=== PATIENT | male | born 1965 | race Hispanic/Latino ===

== ENCOUNTER 2018-08-21 08:23 | Outpatient (CLI) | payer OTHER ==
[2018-08-21 09:09] LABS: Estimated GFR-MDRD - POC Greater than 90
--- NOTE | 2018-08-21 12:51 | MRI ---
MRI PELVIS WITH AND WITHOUT IV CONTRAST: INDICATIONS: History of prostate enlargement with lower urinary tract symptomatology and a history of a prostate b iopsy 1-1/2 hours ago without evidence of cancer. COMPARISON: No comparisons are available. TECHNIQUE: Multiplanar, multisequence, MR images were obtained of the pelvis, with and without IV contrast, util izing prostate cancer specific protocol. MultiHance 20 mL was utilized for the examination. The lesa ges were interpreted on a separate 3D [employer] work station for a multiparametric evaluation. FINDINGS: The prostate measures 5.3 x 3.8 x 3.3 cm, giving an estimated total prostatic volume of 34.60 mL. Th ere are areas of hazy, feathery-like T2 hypointensity seen within the peripheral zone of the prostat e gland, most accentuated within the left mid gland. There are numerous BPH nodules seen centrally, within the transitional zone, without a definite T2 signal abnormality lesion. There is mild wall th ickening involving the bladder. No area of restricted diffusion is grossly evident within the periph eral zone. There are a few scattered colonic diverticula. No pathologically enlarged lymph nodes ar e grossly evident. No region of abnormal dynamic contrast enhancement is grossly evident. No abnorm al marrow signal intensity is evident. IMPRESSION: PI-RADS category 2-Low (clinically significant) cancer is unlikely to be present. POS: CET
== END 2018-08-21 08:24 | disposition home or self-care (01) ==
LOC: TBSIIMAG 08:23
PROVIDERS: ATTEND Urology
DX: N40.1 Benign prostatic hyperplasia with lower urinary tract symptoms (principal); N42.89 Other specified disorders of prostate
CPT/HCPCS: 72197; 82565

== ENCOUNTER 2019-04-22 08:00 | Outpatient (CLI) | payer OTHER ==
--- NOTE | 2019-04-22 09:41 | CT ---
CT of the abdomen and pelvis with and without contrast: 04/22/2019 HISTORY: Hematuria, history of nephrolithiasis TECHNIQUE: Axial CT imaging at 3 mm intervals from lung bases through pubic symphysis with and withou t IV contrast using CT urogram protocol. Coronal and sagittal reformatted imaging during urographic phase provided. FINDINGS: The imaged lung bases are unremarkable. No free intraperitoneal air or fluid is seen. There is an oval cystic lesion in the right paracardiac region abutting the posterior lateral aspect of the right ventricle, consistent with a benign nonenhancing cyst. Pre and postcontrast imaging of the liver, spleen, gallbladder, pancreas, adrenal glands, and kidneys demonstrates no acute findings. There is no evidence for nephrolithiasis or obstructive uropathy on either side. There is a small oval hypodensity within the anterior aspect of the midpole left kidney, difficult to characterize given its small size. It measures approximately 4-5 mm in transverse dimension and approximately 8 mm in AP dimension. There is diverticulosis of the sigmoid colon with no evidence for diverticulitis. No evidence for bow el inflammatory change or bowel obstruction. The vascular structures appear patent. No lymphadenopathy is noted within the abdomen/pelvis. Review of the osseous structures demonstrates no worrisome lytic or blastic bone lesions. Bilateral L 5 pars defects are suspected with minimal anterolisthesis at L5-S1 measuring approximately 5 mm. The urographic phase imaging demonstrates no filling defect within the renal collecting system on eit her side. Urinary bladder is not optimally evaluated on this examination. Small Bochdalek hernia present on the left. IMPRESSION: No evidence for nephrolithiasis or obstructive uropathy. No suspicious solid renal mass. There is a tiny subcentimeter hypodensity within the left kidney which is too small to characterize.
[2019-04-22] MEDS ORDERED: Iopamidol-370 76% 500 ML 1 ML ONE (15:16)
== END 2019-04-22 08:01 | disposition home or self-care (01) ==
LOC: BICCT 08:00
PROVIDERS: ATTEND Urology
DX: R31.29 Other microscopic hematuria (principal); N28.89 Other specified disorders of kidney and ureter
CPT/HCPCS: 74178; Q9967

== ENCOUNTER 2020-06-10 08:02 | Outpatient (CLI) | payer OTHER | END 2020-06-10 08:03 | disposition home or self-care (01) | LOC: TBSIIMAG 08:02 | PROVIDERS: ATTEND Orthopaedic Surgery | DX: M75.42 Impingement syndrome of left shoulder (principal); M19.012 Primary osteoarthritis, left shoulder; M75.102 Unspecified rotator cuff tear or rupture of left shoulder, not specified as traumatic ==

== ENCOUNTER 2021-02-25 09:39 | Observation (INO) | payer BC, OTHER ==
[2021-02-25 10:52] LABS: #Basophils 0.1 thou/uL (0.0-0.2); #Eosinphils 0.1 thou/uL (0.0-0.7); #Lymphocytes 2.1 thou/uL (1.20-3.40); #Monocytes 0.3 thou/uL (0.11-0.59); #Neutrophils 3.1 thou/uL (1.40-6.50); %Basophils 1.1 % (0.0-1.0); %Eosinophils 1.4 % (0.0-10.0); %Lymphocytes 37.2 % (21.0-51.0); %Monocytes 5.9 % (0.0-10.0); %Neutrophils 54.4 % (42.0-75.0); Hemoglobin 13.8 g/dL (14.0-18.0); Mean Corpuscular HGB CONC 33.1 g/dL (32.0-36.0); Mean Corpuscular Hemoglobin 30.3 pg (27.0-31.0); Mean Corpuscular Volume 91.6 fL (78.0-98.0); Mean Platelet Volume 6.8 fL (7.4-10.4); Platelet Count 359 thou/uL (130-400); RBC Distribution Width 11.9 % (11.5-14.5); Red Blood Cell (RBC) Count 4.55 mill/uL (4.70-6.10); White Blood Cell (WBC) Count 5.7 thou/uL (4.8-10.8)
[2021-02-25 11:16] LABS: ALT (SGPT) 18 U/L (8-55); AST (SGOT) 14 U/L (5-34); Albumin 3.7 g/dL (3.5-5.0); Alkaline Phosphatase 78 U/L (40-110); Anion Gap 13 mmol/L (10-20); BUN (Urea Nitrogen) 16 mg/dL (8.4-25.7); Bilirubin, Total 0.5 mg/dL (0.2-1.2); Calc. Creatinine Clearance 0 mL/min (70-130); Calcium 9.1 mg/dL (7.8-10.44); Carbon Dioxide 24 mmol/L (22-29); Chloride 106 mmol/L (98-107); Glucose 90 mg/dL (70-105); Potassium 4.1 mmol/L (3.5-5.1); Protein, Total 6.7 g/dL (6.0-8.3); Sodium 139 mmol/L (136-145)
[2021-02-25 13:29] LABS: Troponin I 0.038 ng/mL (< 0.028)
[2021-02-25] MEDS ORDERED: Aspirin Chewable 81 MG TAB ONE ×2 (13:49→13:50)
[2021-02-25] MEDS ORDERED: Nitroglycerin 2% Ointment 1 INCH/1 GM Packet ONE (13:49)
[2021-02-25] MEDS ORDERED: Acetaminophen 325 MG TAB PO PRN (15:28)
[2021-02-25] MEDS ORDERED: Ondansetron ODT 4 MG TAB PO PRN (15:28)
[2021-02-25] MEDS ORDERED: Nitroglycerin 0.4 MG TAB (25 Tab Bottle) SL PRN (15:30)
[2021-02-25] MEDS ORDERED: Nitroglycerin 2% Ointment 1 INCH/1 GM Packet TOP SCH ×2 (16:00→22:00)
[2021-02-25] MEDS ORDERED: Morphine 4 MG/ML VIAL SLOW IVP PRN (16:09)
[2021-02-25 16:33] LABS: Troponin I 0.022 ng/mL (< 0.028)
[2021-02-25 16:41] LABS: SARS-CoV-2 NAA Rapid Test Not Detected (NotDetected)
[2021-02-25 19:13] LABS: Troponin I 0.014 ng/mL (< 0.028)
[2021-02-25] MEDS ORDERED: Tamsulosin HCl 0.4 MG CAP PO SCH (21:00)
[2021-02-25 22:19] VITALS: BMI 25.2
[2021-02-25] MEDS: Nitroglycerin 2% Ointment 1 INCH/1 GM Packet TOP SCH (23:08)
[2021-02-25] MEDS: Sodium Chloride 0.9% 1,000 ML IV SCH (23:08)
[2021-02-26] MEDS: Nitroglycerin 2% Ointment 1 INCH/1 GM Packet TOP SCH ×3 (06:26→15:20)
[2021-02-26] MEDS: Sodium Chloride 0.9% 1,000 ML IV SCH ×2 (08:19→15:16)
[2021-02-26] MEDS ORDERED: Aspirin Chewable 81 MG TAB PO SCH (09:00)
[2021-02-26] MEDS ORDERED: Prevnar 13-Val Conj/PF 0.5 ML SYRINGE IM ONE (09:00)
[2021-02-26 09:04] LABS: #Eosinphils 0.1 thou/uL (0.0-0.7); #Lymphocytes 2.3 thou/uL (1.20-3.40); #Monocytes 0.4 thou/uL (0.11-0.59); #Neutrophils 2.8 thou/uL (1.40-6.50); %Basophils 0.3 % (0.0-1.0); %Eosinophils 1.8 % (0.0-10.0); %Lymphocytes 40.7 % (21.0-51.0); %Monocytes 6.4 % (0.0-10.0); %Neutrophils 50.8 % (42.0-75.0); Mean Corpuscular HGB CONC 33.5 g/dL (32.0-36.0); Mean Corpuscular Volume 92.3 fL (78.0-98.0); Platelet Count 342 thou/uL (130-400); RBC Distribution Width 11.9 % (11.5-14.5); Red Blood Cell (RBC) Count 4.21 mill/uL (4.70-6.10); White Blood Cell (WBC) Count 5.6 thou/uL (4.8-10.8)
[2021-02-26 09:25] LABS: Anion Gap 10 mmol/L (10-20); BUN (Urea Nitrogen) 21 mg/dL (8.4-25.7); Calc. Creatinine Clearance 97 mL/min (70-130); Calcium 8.7 mg/dL (7.8-10.44); Carbon Dioxide 24 mmol/L (22-29); Cardiac Risk 3.8 (Less than 4.5); Chloride 109 mmol/L (98-107); Cholesterol 139 mg/dl (< 200 Desired); Glucose 91 mg/dL (70-105); HDL Cholesterol 37 mg/dL (>60 Neg Risk); LDL Cholesterol, Calculated 86 mg/dL; Magnesium 1.7 mg/dL (1.6-2.6); Potassium 4.1 mmol/L (3.5-5.1); Sodium 139 mmol/L (136-145); Triglycerides 81 mg/dL (Less than 150)
[2021-02-26 16:27] VITALS: BP 121/87; TEMP 98.1
[2021-02-26] MEDS ORDERED: Atorvastatin Calcium 20 MG TAB PO SCH (21:00)
== END 2021-02-26 17:33 | disposition home or self-care (01) ==
LOC: ERS 09:39 → ERHOLD 14:25 → NEURO 21:51
PROVIDERS: ADMIT Family Medicine; ATTEND Nurse Practitioner Family
DX: R07.89 Other chest pain (principal); D64.9 Anemia, unspecified; N40.0 Benign prostatic hyperplasia without lower urinary tract symptoms; Z86.16 Personal history of COVID-19; Z79.1 Long term (current) use of non-steroidal anti-inflammatories (NSAID); Z79.899 Other long term (current) drug therapy; Z20.822 Contact with and (suspected) exposure to COVID-19
CPT/HCPCS: 36415; 71045; 78452; 80048; 80053; 80061; 83735; 84443; 84484; 85025; 90471; 90670; 93005; 93017; A9500; G0009; G0378; J7050; U0002

== ENCOUNTER 2022-08-26 10:23 | Emergency (ER) | payer BC ==
[2022-08-26 11:01] LABS: Bacteria/HPF None Seen HPF (None Seen); Bilirubin Negative (Negative); Blood, Urine Negative (Negative); CAUTI Indications for Culture Pelvic or flank pain; Clarity Clear (Clear); Glucose, Urine (Dipstick) Normal (Negative); Ketone, Urine Negative (Negative); Leukocyte Negative Leu/uL (Negative); Nitrite Negative (Negative); Protein, Urine (Dipstick) Negative (Neg-Trace); RBC/HPF 0-3 HPF (0-3); Specific Gravity, Urine 1.021 (1.002-1.036); Squamous Epithelial 0-3 HPF (0-3); Urobilinogen Normal mg/dL (Less than 2); WBC/HPF 0-3 HPF (0-3); pH, Urine 5.5 (5.0-9.0)
[2022-08-26 11:05] LABS: Urine Culture Reflex No No
[2022-08-26] MEDS ORDERED: predniSONE 20 MG TAB ONE (11:05)
== END 2022-08-26 12:40 | disposition home or self-care (01) ==
LOC: ERS 10:23
DX: M54.50 Low back pain, unspecified (principal)
CPT/HCPCS: 72072; 72100; 81001; 99283; J7512

== ENCOUNTER 2023-12-03 09:28 | Outpatient (CLI) | payer BC ==
[~2023-12-03 09:28] MED LIST: Iopamidol 370 76% 100 ML VIAL ONE
== END 2023-12-03 09:29 | disposition home or self-care (01) ==
LOC: CT 09:28
PROVIDERS: ATTEND Urology
DX: N40.1 Benign prostatic hyperplasia with lower urinary tract symptoms (principal); M43.17 Spondylolisthesis, lumbosacral region; R93.422 Abnormal radiologic findings on diagnostic imaging of left kidney
CPT/HCPCS: 74178; Q9967

== ENCOUNTER 2024-10-18 13:04 | Emergency (ER) | payer BC ==
[2024-10-18] MEDS ORDERED: Iopamidol-370 76% 500 ML MDV (1 ML CHARGE) ONE (13:28)
[2024-10-18 13:53] LABS: Bacteria/HPF None Seen HPF (None Seen); CAUTI Indications for Culture Acute Hematuria; Glucose, Urine (Dipstick) Normal (Negative); Leukocyte Negative Leu/uL (Negative); Protein, Urine (Dipstick) Negative (Neg-Trace); RBC/HPF None Seen HPF (0-3); Specific Gravity, Urine 1.016 (1.002-1.036); WBC/HPF None Seen HPF (0-3)
[2024-10-18 13:54] LABS: Urine Culture Reflex No No
[2024-10-18 14:28] LABS: #Basophils 0.05 10x3/uL (0.0-0.2); #Eosinophils 0.10 10x3/uL (0.0-0.7); #Monocytes 0.49 10x3/uL (0.11-0.59); #Neutrophils 5.14 10x3/uL (1.40-6.50); %Basophils 0.6 % (0.0-1.0); %Eosinophils 1.2 % (0.0-10.0); %Lymphocytes 30.9 % (21.0-51.0); %Monocytes 5.8 % (0.0-10.0); %Neutrophils 61.3 % (42.0-75.0); Hematocrit 42.4 % (42.0-52.0); Hemoglobin 13.9 g/dL (14.0-18.0); Mean Corpuscular Hemoglobin 29.3 pg (27.0-31.0); Mean Corpuscular Volume 89.5 fL (78.0-98.0); Platelet Count 238 10x3/uL (130-400); Red Blood Cell (RBC) Count 4.74 mill/uL (4.70-6.10); White Blood Cell (WBC) Count 8.39 10x3/uL (4.8-10.8)
[2024-10-18 14:45] LABS: ALT (SGPT) 17 U/L (Less than 45); AST (SGOT) 20 U/L (11-34); Albumin 4.2 g/dL (3.1-4.5); Alkaline Phosphatase 90 U/L (40-110); Anion Gap 12 mmol/L (10-20); BUN (Urea Nitrogen) 18 mg/dL (8.4-25.7); Bilirubin, Total 0.6 mg/dL (0.3-1.2); Calc. Creatinine Clearance 0 mL/min (70-130); Calcium 8.9 mg/dL (7.8-10.44); Carbon Dioxide 25 mmol/L (22-29); Chloride 107 mmol/L (98-107); Globulin 2.5 g/dL (2.4-3.5); Glucose 86 mg/dL (70-105); Lipase 25 U/L (8-78); Potassium 4.1 mmol/L (3.5-5.1); Sodium 140 mmol/L (136-145)
[2024-10-18] MEDS ORDERED: Ondansetron PF 4 MG/2 ML Vial ONE (15:24)
[2024-10-18] MEDS ORDERED: Ketorolac Tromethamine 30 MG (1 mL) VIAL ONE (15:24)
== END 2024-10-18 17:00 | disposition home or self-care (01) ==
LOC: ERS 13:04
DX: R10.11 Right upper quadrant pain (principal)
CPT/HCPCS: 36415; 74177; 76705; 80053; 81001; 83690; 85025; 96374; 96375; J1885; J2405; Q9967